=== PATIENT | male | born 1975 | race Two or more races ===

== ENCOUNTER 2023-06-29 08:25 | Emergency (ER) | payer OTHER ==
[~2023-06-29] VITALS: Ht 157.5 cm; Wt 91.2 kg
[2023-06-29 11:15] VITALS: BP 152/94; PULSE 82; RESP 18; TEMP 98; O2SAT 99
== END 2023-06-29 11:23 | disposition home or self-care (01) ==
LOC: ER 08:25
DX: M54.2 Cervicalgia (principal); M79.661 Pain in right lower leg; V49.9XXA Car occupant (driver) (passenger) injured in unspecified traffic accident, initial encounter; Y93.89 Activity, other specified; Y92.410 Unspecified street and highway as the place of occurrence of the external cause; Y99.8 Other external cause status
CPT/HCPCS: 72040